=== PATIENT | female | born 1985 | race Caucasian/White ===

== ENCOUNTER 2018-08-22 20:58 | Emergency (ER) | payer OTHER ==
[~2018-08-22] VITALS: Ht 154.9 cm; Wt 152.0 kg
[~2018-08-22 20:58] MED LIST: PREN1TAB49 PO
[2018-08-22 21:39] VITALS: Ht 154.9 cm; Wt 152.0 kg
[2018-08-23] MEDS ORDERED: ACETAMINOPHEN 325 MG TAB PO ONE (00:30)
--- NOTE | 2018-08-23 01:43 | ERD ---
ER Documentation Chief Complaint Chief Complaint C/O LOWER AP X1 WEEK, DIARRHEA 2DAYS AND NOT FEELING BABY, 18WEEKS PREG HPI 32-year-old female presents with lower abdominal pain for last week. She said intermittent loose bowel movements for last 2 days. Her primary concern is that she is 18 weeks and has not felt the baby moving. She is a G5 para 4. Denies bleeding. She has had intermittent vomiting since early nonbi lious nonbloody. ROS All systems reviewed and are negative except as per history of present illness. Medications Home Meds Reported Medications Vits W-Ca,Fe,Fa(<1MG) () 1 Tab Tablet, 1 TAB PO DAILY 03/30/12 Vits W-Ca,Fe,Fa(<1MG) () 1 Tab Tablet, 1 TAB PO DAILY 10/10/11 Allergies Allergies: Coded Allergies: morphine (Verified Allergy, Mild, RASH, 03/30/12) PMhx/Soc History of Surgery: Yes ( X3) Anesthesia Reaction: No Hx Neurological Disorder: No Hx Respiratory Disorders: No Hx Cardiac Disorders: No Hx Psychiatric Problems: No Hx Miscellaneous Medical Probl: No Hx Alcohol Use: No Hx Substance Use: No Hx Tobacco Use: No Smoking Status: Never smoker FmHx Family History: No diabetes, No coronary disease, No other Physical Exam Vitals Vital Signs Date Temp Pulse Resp B/P (MAP) Pulse Ox O2 O2 Flow FiO2 Time Delivery Rate 08/23/18 37.0 00:24 08/22/18 98.6 89 20 145/86 99 21:39 (105) Physical Exam Const: No acute distress. Morbidly obese. Head: Atraumatic Eyes: Normal Conjunctiva ENT: Normal External Ears, Nose and Mouth. Neck: Full range of motion. No meningismus. Resp: Clear to auscultation bilaterally Cardio: Regular rate and rhythm, no murmurs Abd: Soft, non tender, non distended. Normal bowel sounds Skin: No petechiae or rashes Back: No midline or flank tenderness Ext: No cyanosis, or edema Neur: Awake and alert Psych: Normal Mood and Affect Results 24 hrs Laboratory Tests Test 08/23/18 01:26 Bedside Urine pH (LAB) 6.0 Bedside Urine Protein (LAB) 1+ Bedside Urine Glucose (UA) Negative Bedside Urine Ketones (LAB) Negative Bedside Urine Blood Negative Bedside Urine Nitrite (LAB) Negative Bedside Urine Leukocyte Esterase (L Negative Current Medications Medications Dose Sig/Nita Start Time Status Last (Trade) Ordered Route PRN Stop Time Admin Dose Reason Admin 650 mg ONCE ONCE 08/23/18 DC 08/23/18 Acetaminophen PO 00:30 08/23/18 00:24 (Tylenol 00:31 Tab) Procedures/MDM Pelvic ultrasound shows no acute abnormalities and positive heart tones and approximately 16-week intrauterine . No adnexal masses. Urine shows no signs of infection or significant abnormalities. Patient presents with lower abdominal discomfort, diarrhea for 2 days. She felt as if she had no movement. Ultrasound shows no acute abnormalities. She will be discharged home with recommendation for fluids, Tylenol as needed, primary care follow-up and return precautions. The patient was stable with no new complaints during the ER course. Clinically, there is no current evidence to suggest meningitis, sepsis, acute abdomen, pneumonia, stroke, acute coronary syndrome, pulmonary embolism, aortic dissection or any other emergent condition appearing to require further evaluation or hospitalization. Patient counseled regarding my diagnostic impression and care plan. Prior to discharge all questions answered. Pt agrees with treatment plan and understands strict return precautions. Pt is instructed to follow up with primary care provider within 24- 48 hours. Precautionary instructions provided including instructions to return to the ER if not improving or for any worsening or changing symptoms or concerns. Disclaimer: Inadvertent spelling and grammatical errors are likely due to EHR/dictation software use and do not reflect on the overall quality of patient care. Also, please note that the electronic time recorded on this note does not necessarily reflect the actual time of the patient encounter. Departure Diagnosis: Primary Impression: Abdominal pain Abdominal location: lower abdomen, unspecified Qualified Codes: R10.30 - Lower abdominal pain, unspecified Condition: Stable Patient Instructions: Abdominal Pain, Early Additional Instructions: Ultrasound and urine normal today. Recheck for bleeding, fevers, pain, new worsening symptoms. Drink plenty of fluids and take Tylenol for pain. PETER RODAS MD Aug 23, 2018 01:43
[2018-08-23 02:07] VITALS: BP 133/63; PULSE 73; RESP 19
== END 2018-08-23 02:08 | disposition home or self-care (01) ==
LOC: FTE 20:58
DX: O26.892 Other specified pregnancy related conditions, second trimester (principal); R10.30 Lower abdominal pain, unspecified; Z3A.16 16 weeks gestation of pregnancy
CPT/HCPCS: 76805; 81003; Z7502; Z7610